=== PATIENT | female | born 1965 | race African-American/Black ===

== ENCOUNTER 2017-01-12 14:04 | Inpatient (IN) | payer SELFPAY ==
[~2017-01-12] VITALS: Ht 172.7 cm; Wt 98.4 kg
[2017-01-12] MEDS ORDERED: IV NORMAL SALINE 1000ML BAG 1,000 ML IV SCH (14:16)
--- NOTE | 2017-01-12 14:31 | RAD ---
Indication: Slurred speech. Previous strokes Technique: Noncontrast CT head was obtained. There is no prior study at this institution. One or more of the following individualized dose reduction techniques were utilized for this examination: 1. Automated exposure control 2. Adjustment of the mA and/or kV according to patient size 3. Use of iterative reconstruction technique Findings: There is an area of subtle decreased attenuation in the posterior right temporal lobe. Small acute infarct is possible. Consider MRI. There is no evidence of hemorrhagic transformation. There is an old left frontoparietal infarct. The ventricles and sulci are within normal limits for age. There is no acute intracranial hemorrhage or extra-axial fluid collection. There is no mass effect or midline shift. The paranasal sinuses and mastoid air cells are clear. Critical report was called to Dr. Alfaro at 1427 hours. Impression: 1. Area of subtle decreased attenuation and loss of luna-white differentiation in the right temporal lobe concerning for acute infarct. 2. 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
[2017-01-12 14:32] LABS: HEMATOCRIT 43.3 % (36.0-47.0); HEMOGLOBIN 14.5 g/dL (12.0-15.5); RED BLOOD COUNT 5.04 x10^6/uL (3.50-5.40); RED CELL DISTRIBUTION WIDTH 14.7 % (11.5-14.5); WHITE BLOOD COUNT 7.2 x10^3/uL (4.0-11.0)
[2017-01-12] MEDS ORDERED: DIAZ5TAB PO (14:32)
[2017-01-12] MEDS ORDERED: WARF2TAB7 PO (14:32)
[2017-01-12] MEDS ORDERED: CLON0.1T PO (14:32)
[2017-01-12] MEDS ORDERED: ATOR10TA PO (14:32)
[2017-01-12] MEDS ORDERED: AMLO10TA2 PO (14:32)
--- NOTE | 2017-01-12 14:40 | EKG ---
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
[2017-01-12 14:44] LABS: INR 1.1 (0.8-1.1); PROTHROMBIN TIME PATIENT 13.6 SEC (11.7-14.0)
[2017-01-12 14:55] LABS: CALCIUM 9.2 mg/dL (8.5-10.1); GFR 58.2; POTASSIUM 3.3 mmol/L (3.5-5.1)
[2017-01-12 14:56] LABS: ISTAT INR 1.1 (0.9-1.1); ISTAT PT 13.2 Sec (10.0-14.0)
[2017-01-12 15:00] LABS: ALBUMIN 3.9 g/dL (3.4-5.0); DIRECT BILIRUBIN 0.1 mg/dL (0.0-0.2); MAGNESIUM 1.8 mg/dL (1.8-2.4); TOTAL BILIRUBIN 0.4 mg/dL (0.2-1.0); TOTAL PROTEIN 8.5 g/dL (6.4-8.2)
[2017-01-12] MEDS ORDERED: ACETAMINOPHEN 650 MG SUPP.RECT. PR PRN (15:00)
[2017-01-12] MEDS ORDERED: ONDANSETRON PF 4 MG/2 ML VIAL. IV PRN (15:00)
[2017-01-12] MEDS ORDERED: MORPHINE SULFATE 4 MG/ML DISP.SYRIN. IV PRN (15:00)
[2017-01-12] MEDS ORDERED: LABETALOL 20 MG/4 ML DISP.SYRIN. IVP PRN (15:00)
[2017-01-12] MEDS ORDERED: ACETAMINOPHEN 325 MG TABLET. PO PRN ×2 (15:00)
--- NOTE | 2017-01-12 15:06 | RAD ---
Indication: Chest pain and pressure. Technique: Upright portable chest radiograph was obtained. No comparison is available. Findings: The lungs are clear. The heart is not enlarged and there is no heart failure. Bony structures are intact. Leads overlie the patient. Impression: No acute thoracic findings.
[2017-01-12 15:09] LABS: CKMB MASS 0.7 ng/mL (0.0-3.6)
--- NOTE | 2017-01-12 15:16 | PHYS DOC ---
Past Medical History Past Medical History: Anxiety, CVA, High Cholesterol, Hypertension Past Surgical History: Hysterectomy, Tubal ligation Additional Information: 4-5 cigarettes daily Alcohol Use: None Drug Use: None Adult General Chief Complaint Chief Complaint: NEURO SYMPTOMS/DEFICITS HPI HPI Patient is a 51 year old F who presents with signs and symptoms of an acute stroke. Patient states she's had a history of strokes. 50 minutes prior to arrival patient developed weakness to her extremity is bilaterally with difficulty talking. Patient's last known well was 1:45 PM. Patient has a history of receiving TPA. Patient denies any vision changes. Patient denies any deficits to the lower extremity. Patient denies any numbness or tingling to the upper extremity. Patient denies any chest pain or shortness of breath. Patient denies any nausea/vomiting/diarrhea. Patient has no other complaints. A code stroke was initiated on this patient. Review of Systems Review of Systems GEN: Denies fevers, chills, sweats HEENT: Denies blurred vision, sore throat CV: Denies chest pain RESP: Denies shortness of air, cough GI: Denies n/v/d NEURO: Left upper extremity weakness and dysarthria MSK: Denies weakness, joint pain/swelling Current Medications Current Medications Current Medications Medications (Trade) Dose Ordered Sig/Deyanira Start Time Stop Time Status Last Admin Dose Admin Acetaminophen (Acetaminophen Supp) 650 mg PRN Q4HRS PRN 01/12/17 15:00 Acetaminophen (Tylenol) 650 mg PRN Q4HRS PRN 01/12/17 15:00 01/13/17 14:59 Enoxaparin Sodium (Lovenox 40mg Syringe) 40 mg Q24H 01/12/17 15:00 UNV Labetalol HCl (Normodyne) 10 mg PRN Q10MIN PRN 01/12/17 15:00 Morphine Sulfate 4 mg PRN Q2HR PRN 01/12/17 15:00 01/13/17 14:59 Ondansetron HCl (Zofran) 4 mg PRN Q8HRS PRN 01/12/17 15:00 01/13/17 14:59 Simvastatin (Zocor) 10 mg QHS 01/12/17 21:00 UNV Sodium Chloride 1,000 ml @ 100 mls/hr Q10H 01/12/17 14:16 01/13/17 00:15 01/12/17 15:00 100 MLS/HR Warfarin Sodium (Coumadin Per Pharmacy) 1 each PRN DAILY PRN 01/12/17 15:00 UNV Allergies Allergies Allergies Coded Allergies Type Severity Reaction Last Updated Verified No Known Drug Allergies 01/12/17 No Physical Exam Physical Exam GEN.: No apparent distress. Alert and oriented. HEENT: Head is normocephalic, atraumatic NECK: Supple. LUNGS: CTAB. HEART: RRR, S1, S2 present. Peripheral pulses intact ABDOMEN: Soft, nontender. Positive bowel sounds. EXTREMITIES: Without any cyanosis. NEUROLOGIC: dysarthria, 3 out of 5 muscle weakness to the upper extremity bilaterally with no paresthesias, 4-5 muscle weakness to lower extremity bilaterally without any paresthesias PSYCHIATRIC: Normal affect, normal mood. SKIN: No ulcerations Current Patient Data Vital Signs Vital Signs Date Time Temp Pulse Resp B/P (MAP) Pulse Ox O2 Delivery O2 Flow Rate FiO2 01/12/17 15:03 81 16 95 01/12/17 14:15 97.8 160/101 (120) Room Air 97.8 Lab Values Laboratory Tests Test 01/12/17 14:12 01/12/17 14:16 White Blood Count 7.2 x10^3/uL (4.0-11.0) Red Blood Count 5.04 x10^6/uL (3.50-5.40) Hemoglobin 14.5 g/dL (12.0-15.5) Hematocrit 43.3 % (36.0-47.0) Mean Corpuscular Volume 86 fL (79-100) Mean Corpuscular Hemoglobin 29 pg (25-35) Mean Corpuscular Hemoglobin Concent 34 g/dL (31-37) Red Cell Distribution Width 14.7 % (11.5-14.5) H Platelet Count 349 x10^3/uL (140-400) Prothrombin Time 13.6 SEC (11.7-14.0) 13.2 Sec (10.0-14.0) Prothrombin Time INR 1.1 (0.8-1.1) PTT 30 SEC (24-38) Sodium Level 142 mmol/L (136-145) Potassium Level 3.3 mmol/L (3.5-5.1) L Chloride Level 105 mmol/L (98-107) Carbon Dioxide Level 30 mmol/L (21-32) Anion Gap 7 (6-14) Blood Urea Nitrogen 15 mg/dL (7-20) Creatinine 1.0 mg/dL (0.6-1.0) Estimated GFR (Cockcroft-Gault) 58.2 Glucose Level 133 mg/dL (70-99) H Glucose (Fingerstick) 132 mg/dL (70-99) H Calcium Level 9.2 mg/dL (8.5-10.1) Magnesium Level 1.8 mg/dL (1.8-2.4) Total Bilirubin 0.4 mg/dL (0.2-1.0) Direct Bilirubin 0.1 mg/dL (0.0-0.2) Aspartate Amino Transferase (AST) 23 U/L (15-37) Alanine Aminotransferase (ALT) 33 U/L (14-59) Alkaline Phosphatase 128 U/L (46-116) H Troponin I Quantitative < 0.017 ng/mL (0.000-0.055) Total Protein 8.5 g/dL (6.4-8.2) H Albumin 3.9 g/dL (3.4-5.0) POC INR 1.1 (0.9-1.1) Laboratory Tests 01/12/17 14:12 Laboratory Tests 01/12/17 14:12 EKG EKG 1435: EKG shows normal sinus rhythm rate of 93 no STEMI[] Radiology/Procedures Radiology/Procedures CT scan of the head shows an area of subtle decreased attenuation in loss of luna-white matter differentiation in the right temporal lobe concerning for an acute infarct[] Course & Med Decision Making Course & Med Decision Making Pertinent Labs and Imaging studies reviewed. (See chart for details) ED course: Patient was seen and examined upon arrival emergency room code stroke was initiated and stroke order set was ordered 1425: Radiologist contacted me with CT findings 1429: Discussed CC/HP/PMH with Dr. Merritt and recommends no TPA secondary to patient's clinical symptoms and CT findings and will be placed on consult and wants an MRI 1500: Discussed CC/HP/PMH with Dr. sorenson and recommends admit [] 1515: Plan was discussed with patient to admit for further evaluation and management. [] Dragon Disclaimer Dragon Disclaimer This electronic medical record was generated, in whole or in part, using a voice recognition dictation system. Departure Departure Impression: Primary Impression: CVA (cerebral vascular accident) Disposition: 09 ADMITTED INPATIENT Admitting Physician: Liz Sorenson Condition: STABLE KATHRYN PORTER DO Jan 12, 2017 15:15
--- NOTE | 2017-01-12 15:32 | PDOC2 ---
NEUROLOGY CONSULT Date of Admission Date of Admission DATE: 01/12/17 TIME: 15:25 Reason for Consult Reason for Consult: Stroke symptoms Referring Physician Referring Physician: Dr. Sorenson Source Source: Caregiver, Chart review, Patient History of Present Illness History of Present Illness The patient is a 51-year-old right-handed female with history of strokes in the past requiring alteplase infusion in [place] where she lives. She was visiting here for her brother's who just of a stroke. She was at the home, than she was doing some cleaning and laundry, and noticed onset of bilateral arm heaviness and numbness as well as dysarthria. Her last stroke cause some aphasia and right-sided weakness but she made a very good recovery. She thinks she just had a panic attack. Symptoms started about 1:45 and I saw the patient at 2:45. By then she was already feeling better. There is no history of seizure or head injury. Past Medical History Cardiovascular: HTN, Hyperlipidemia CENTRAL NERVOUS SYSTEM: CVA Psych: Anxiety Past Surgical History Past Surgical History: Tubal Ligation, Hysterectomy Family History Family History: CVA Social History Social History Smokes a fourth of a pack of cigarettes per day, rare alcohol, lives in [place] Current Medications Current Medications Current Medications Sodium Chloride 1,000 ml @ 100 mls/hr Q10H IV Last administered on 01/12/17t 15:00; Start 01/12/17 at 14:16; Stop 01/13/17 at 00:15 Enoxaparin Sodium (Lovenox 40mg Syringe) 40 mg Q24H SQ ; Start 01/12/17 at 16: 00 Labetalol HCl (Normodyne) 10 mg PRN Q10MIN PRN IVP COMM; Start 01/12/17 at 15: 00 Simvastatin (Zocor) 10 mg QHS PO ; Start 01/12/17 at 21:00 Acetaminophen (Tylenol) 650 mg PRN Q6HRS PRN PO TEMP > 100.4F; Start 01/12/17 at 15:00 Acetaminophen (Acetaminophen Supp) 650 mg PRN Q4HRS PRN [place] TEMP > 100.4F; Start 01/12/17 at 15:00 Warfarin Sodium (Coumadin Per Pharmacy) 1 each PRN DAILY PRN MC SEE COMMENTS; Start 10/16/17 at 15:00 Ondansetron HCl (Zofran) 4 mg PRN Q8HRS PRN IV NAUSEA/VOMITING; Start at 15:00; Stop 01/13/17 at 14:59 Morphine Sulfate 4 mg PRN Q2HR PRN IV PAIN; Start 01/12/17 at 15:00; Stop at 14:59 Acetaminophen (Tylenol) 650 mg PRN Q4HRS PRN PO FEVER; Start 01/12/17 at 15:00 ; Stop 01/13/17 at 14:59 Active Scripts Active Reported Amlodipine Besylate 10 Mg Tablet Unknown Dose PO DAILY Clonidine Hcl 0.1 Mg Tablet Unknown Dose PO DAILY Warfarin Sodium 2 Mg Tablet Unknown Dose PO DAILY Lipitor (Atorvastatin Calcium) 10 Mg Tablet Unknown Dose PO HS Valium (Diazepam) 5 Mg Tablet 5 Mg PO BID Allergies Allergies: Coded Allergies: No Known Drug Allergies (Unverified , 01/12/17) ROS Review of System Patient denies fevers, chills, weight loss, dyspnea, angina, abdominal pain, change in bowels, or dysuria. 14 point review of systems is negative. Physical Exam Physical Examination PHYSICAL EXAMINATION: Vital signs: see above. General appearance is normal and in no acute distress. HEENT: Normocephalic and nontraumatic. Eyes, nose, ears, and throat are unremarkable. Neck is supple. No lymphadenopathy. No bruits are heard over the carotid artery. No crepitus. NEUROLOGICAL EXAMINATION: Mental Status Examination: Alert. Oriented to time, place, and person. Answers questions and follows commends. Just a little hesitant with speech. Pupils are equal round and reactive to light and accommodation. Funduscopic exam: No papilledema. Extraocular movements are intact. Visual field exam shows no defect on the direct confrontation. No motor or sensory deficits on the facial exam. Uvula in the midline and the soft palate elevated symmetrically. No deviation of the tongue to any direction. Gross hearing is normal. Shoulder shrug normal. Muscle tone is normal. Muscle strength is 5. Deep tendon reflexes are 2+ all around. Plantar reflex is with flexion response bilaterally. [id number]-[id number] test performance is accurate. Tandem walk test is accurate. Alternative movements are accurate. Romberg test is negative. Gait is normal. Sensory exam shows no deficits. No cerebellar signs are elicited. Vitals VITALS Vital Signs Date Time Temp Pulse Resp B/P (MAP) Pulse Ox O2 Delivery O2 Flow Rate FiO2 01/12/17 15:03 81 16 95 01/12/17 14:15 97.8 160/101 (120) Room Air 97.8 Labs Labs Laboratory Tests Test 01/12/17 14:12 01/12/17 14:16 White Blood Count 7.2 x10^3/uL (4.0-11.0) Red Blood Count 5.04 x10^6/uL (3.50-5.40) Hemoglobin 14.5 g/dL (12.0-15.5) Hematocrit 43.3 % (36.0-47.0) Mean Corpuscular Volume 86 fL (79-100) Mean Corpuscular Hemoglobin 29 pg (25-35) Mean Corpuscular Hemoglobin Concent 34 g/dL (31-37) Red Cell Distribution Width 14.7 % (11.5-14.5) Platelet Count 349 x10^3/uL (140-400) Prothrombin Time 13.6 SEC (11.7-14.0) 13.2 Sec (10.0-14.0) Prothromb Time International Ratio 1.1 (0.8-1.1) Activated Partial Thromboplast Time 30 SEC (24-38) Sodium Level 142 mmol/L (136-145) Potassium Level 3.3 mmol/L (3.5-5.1) Chloride Level 105 mmol/L (98-107) Carbon Dioxide Level 30 mmol/L (21-32) Anion Gap 7 (6-14) Blood Urea Nitrogen 15 mg/dL (7-20) Creatinine 1.0 mg/dL (0.6-1.0) Estimated GFR (Cockcroft-Gault) 58.2 Glucose Level 133 mg/dL (70-99) Glucose (Fingerstick) 132 mg/dL (70-99) Calcium Level 9.2 mg/dL (8.5-10.1) Magnesium Level 1.8 mg/dL (1.8-2.4) Total Bilirubin 0.4 mg/dL (0.2-1.0) Direct Bilirubin 0.1 mg/dL (0.0-0.2) Aspartate Amino Transf (AST/SGOT) 23 U/L (15-37) Alanine Aminotransferase (ALT/SGPT) 33 U/L (14-59) Alkaline Phosphatase 128 U/L (46-116) Creatine Kinase 154 U/L (26-192) Creatine Kinase MB (Mass) 0.7 ng/mL (0.0-3.6) Creatine Kinase MB Relative Index 0.5 % (0-4) Troponin I Quantitative < 0.017 ng/mL (0.000-0.055) PH-Jcz-V-Type Natriuretic Peptide 33 pg/mL (0-124) Total Protein 8.5 g/dL (6.4-8.2) Albumin 3.9 g/dL (3.4-5.0) Bedside INR (LAB) 1.1 (0.9-1.1) Laboratory Tests Test 01/12/17 14:12 01/12/17 14:16 White Blood Count 7.2 x10^3/uL (4.0-11.0) Red Blood Count 5.04 x10^6/uL (3.50-5.40) Hemoglobin 14.5 g/dL (12.0-15.5) Hematocrit 43.3 % (36.0-47.0) Mean Corpuscular Volume 86 fL (79-100) Mean Corpuscular Hemoglobin 29 pg (25-35) Mean Corpuscular Hemoglobin Concent 34 g/dL (31-37) Red Cell Distribution Width 14.7 % (11.5-14.5) Platelet Count 349 x10^3/uL (140-400) Prothrombin Time 13.6 SEC (11.7-14.0) 13.2 Sec (10.0-14.0) Prothromb Time International Ratio 1.1 (0.8-1.1) Activated Partial Thromboplast Time 30 SEC (24-38) Sodium Level 142 mmol/L (136-145) Potassium Level 3.3 mmol/L (3.5-5.1) Chloride Level 105 mmol/L (98-107) Carbon Dioxide Level 30 mmol/L (21-32) Anion Gap 7 (6-14) Blood Urea Nitrogen 15 mg/dL (7-20) Creatinine 1.0 mg/dL (0.6-1.0) Estimated GFR (Cockcroft-Gault) 58.2 Glucose Level 133 mg/dL (70-99) Glucose (Fingerstick) 132 mg/dL (70-99) Calcium Level 9.2 mg/dL (8.5-10.1) Magnesium Level 1.8 mg/dL (1.8-2.4) Total Bilirubin 0.4 mg/dL (0.2-1.0) Direct Bilirubin 0.1 mg/dL (0.0-0.2) Aspartate Amino Transf (AST/SGOT) 23 U/L (15-37) Alanine Aminotransferase (ALT/SGPT) 33 U/L (14-59) Alkaline Phosphatase 128 U/L (46-116) Creatine Kinase 154 U/L (26-192) Creatine Kinase MB (Mass) 0.7 ng/mL (0.0-3.6) Creatine Kinase MB Relative Index 0.5 % (0-4) Troponin I Quantitative < 0.017 ng/mL (0.000-0.055) FY-Srg-O-Type Natriuretic Peptide 33 pg/mL (0-124) Total Protein 8.5 g/dL (6.4-8.2) Albumin 3.9 g/dL (3.4-5.0) Bedside INR (LAB) 1.1 (0.9-1.1) Images Images CT head: Findings: There is an area of subtle decreased attenuation in the posterior right temporal lobe. Small acute infarct is possible. Consider MRI. There is no evidence of hemorrhagic transformation. There is an old left frontoparietal infarct. The ventricles and sulci are within normal limits for age. There is no acute intracranial hemorrhage or extra-axial fluid collection. There is no mass effect or midline shift. The paranasal sinuses and mastoid air cells are clear. Critical report was called to Dr. Alfaro at 1427 hours. Impression: 1. Area of subtle decreased attenuation and loss of luna-white differentiation in the right temporal lobe concerning for acute infarct. 2. 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 Assessment/Plan Assessment/Plan Impression: Stroke symptoms, but she has bilateral problems and dysarthria which are difficult to localize. On the other hand, relative hypertension and anxiety could have produced the symptoms. The patient is much better now and has a virtually normal examination. She is on warfarin with a subtherapeutic international normalized ratio. Prior strokes in the past including definite left frontal stroke, for which she received alteplase Radiology is concerned about right temporal lobe problem, which I do not fully appreciate. Recommendations: I discussed the risks, benefits, alternatives, and side effects with the patient and her family. Although the CT head is abnormal, her bedside examination is nonfocal, her symptoms are rapidly improving, so I believe that the risks outweigh the benefits of alteplase infusion. Inpatient observation MRI brain Echocardiogram [facility] to dose warfarin Rehabilitation evaluations. Continue statin Check lipids. Thank you for letting me help with the patient's care. HEMANT VARGAS MD Jan 12, 2017 15:32
[2017-01-12] MEDS ORDERED: ENOXAPARIN 40 MG/0.4 ML SYRINGE. SQ SCH (16:00)
--- NOTE | 2017-01-12 16:17 | PDOC1 ---
History and Physical Date of Admission Date of Admission DATE: 01/12/17 TIME: 16:13 Identification/Chief Complaint Chief Complaint arm weakness Problems: Source Source: Chart review, Patient History of Present Illness History of Present Illness Ms. Remy is a 51 year old F admit for new arm weakness bilat, and prior history of acute stroke. she reports a stressful day, recent in the family, and was agitated, she had more anxiety, and her OCD was flared up today after meeting extended family at the home. Then suddenly, she developed weakness to her extremity is bilaterally with difficulty talking. Prior history of receiving TPA. Patient denies any vision changes. arm weakenss only and is improving in the ER, no intervnetion given Past Medical History Cardiovascular: HTN, Hyperlipidemia CENTRAL NERVOUS SYSTEM: CVA Psych: Anxiety Past Surgical History Past Surgical History: Tubal Ligation, Hysterectomy Social History Smoke: <1 pack per day ALCOHOL: none Drugs: None Current Medications Current Medications Current Medications Sodium Chloride 1,000 ml @ 100 mls/hr Q10H IV Last administered on 01/12/17t 15:00; Start 01/12/17 at 14:16; Stop 01/13/17 at 00:15 Enoxaparin Sodium (Lovenox 40mg Syringe) 40 mg Q24H SQ ; Start 01/12/17 at 16: 00 Labetalol HCl (Normodyne) 10 mg PRN Q10MIN PRN IVP COMM; Start 01/12/17 at 15: 00 Simvastatin (Zocor) 10 mg QHS PO ; Start 01/12/17 at 21:00 Acetaminophen (Tylenol) 650 mg PRN Q6HRS PRN PO TEMP > 100.4F; Start 01/12/17 at 15:00 Acetaminophen (Acetaminophen Supp) 650 mg PRN Q4HRS PRN IA TEMP > 100.4F; Start 01/12/17 at 15:00 Warfarin Sodium (Coumadin Per Pharmacy) 1 each PRN DAILY PRN MC SEE COMMENTS; Start 01/12/17 at 15:00 Ondansetron HCl (Zofran) 4 mg PRN Q8HRS PRN IV NAUSEA/VOMITING; Start at 15:00; Stop 01/13/17 at 14:59 Morphine Sulfate 4 mg PRN Q2HR PRN IV PAIN; Start 01/12/17 at 15:00; Stop at 14:59 Acetaminophen (Tylenol) 650 mg PRN Q4HRS PRN PO FEVER; Start 01/12/17 at 15:00 ; Stop 01/13/17 at 14:59 Active Scripts Active Reported Amlodipine Besylate 10 Mg Tablet Unknown Dose PO DAILY Clonidine Hcl 0.1 Mg Tablet Unknown Dose PO DAILY Warfarin Sodium 2 Mg Tablet Unknown Dose PO DAILY Lipitor (Atorvastatin Calcium) 10 Mg Tablet Unknown Dose PO HS Valium (Diazepam) 5 Mg Tablet 5 Mg PO BID Allergies Allergies: Coded Allergies: No Known Drug Allergies (Unverified , 01/12/17) ROS General: No: Chills, Night Sweats, Fatigue, Malaise, Appetite, Other PSYCHOLOGICAL ROS: YES: Anxiety, Irritablity, Sleep disturbances, No: Behavioral Disorder, Concentration difficultie, Decreased libido, Depression, Disorientation, Hallucinations, Hostility, Memory difficulties, Mood Swings, Obsessive thoughts, Other Eyes: No Blurry vision, No Decreased vision, No Double vision, No Dry eyes, No Excessive tearing, No Eye Pain, No Itchy Eyes, No Loss of vision, No Photophobia , No Scotomata, No Uses contacts, No Uses glasses, No Other HEENT: YES: Heacaches, No: Visual Changes, Hearing change, Nasal congestion, Nasal discharge, Oral lesions, Sinus pain, Sore Throat, Epistaxis, Sneezing, Snoring, Tinnitus, Vertigo, Vocal changes, Other Respiratory: No: Cough, Hemoptysis, Orthopnea, Pleuritic Pain, Shortness of breath, SOB with excertion, Sputum Changes, Stridor, Tachypnea, Wheezing, Other Cardiovascular: No Chest Pain, No Palpitations, No Orthopnea, No Paroxysmal Noc. Dyspnea, No Edema, No Lt Headedness, No Other Gastrointestinal: Yes Nausea, No Vomiting, No Abdominal Pain, No Diarrhea, No Constipation, No Melena, No Hematochezia, No Other Genitourinary: No Dysuria, No Frequency, No Incontinence, No Hematuria, No Retention, No Discharge, No Urgency, No Pain, No Flank Pain, No Other, No , No , No , No , No , No , No Musculoskeletal: Yes Muscular Weakness, Yes Pain In:, No Gait Disturbance, No Joint Pain, No Joint Stiffness, No Joint Swelling, No Muscle Pain, No Swelling In:, No Other Neurological: Yes Weakness, No Behavorial Changes, No Bowel/Bladder ControlChng, No Confusion, No Dizziness, No Gait Disturbance, No Headaches, No Impaired Coord/balance, No Memory Loss, No Numbness/Tingling, No Seizures, No Speech Problems, No Tremors, No Visual Changes, No Other Skin: Yes Dry Skin, No Eczema, No Hair Changes, No Lumps, No Mole Changes, No Mottling, No Nail Changes, No Pruritus, No Rash, No Skin Lesion Changes, No Other, No Acne Physical Exam General: Alert, Oriented X3, Cooperative, No acute distress HEENT: Atraumatic, PERRLA, EOMI Lungs: Clear to auscultation Heart: no gallops, no murmurs Abdomen: Normal bowel sounds, Soft Rectal Exam: not examined Extremities: No cyanosis, Normal pulses Neuro: Normal speech, Sensation intact Psych/Mental Status: Mental status NL, Mood NL Vitals Vitals Vital Signs Date Time Temp Pulse Resp B/P (MAP) Pulse Ox O2 Delivery O2 Flow Rate FiO2 01/12/17 15:31 74 20 100 01/12/17 14:15 97.8 160/101 (120) Room Air 97.8 Labs Labs Laboratory Tests Test 01/12/17 14:12 01/12/17 14:16 White Blood Count 7.2 x10^3/uL (4.0-11.0) Red Blood Count 5.04 x10^6/uL (3.50-5.40) Hemoglobin 14.5 g/dL (12.0-15.5) Hematocrit 43.3 % (36.0-47.0) Mean Corpuscular Volume 86 fL (79-100) Mean Corpuscular Hemoglobin 29 pg (25-35) Mean Corpuscular Hemoglobin Concent 34 g/dL (31-37) Red Cell Distribution Width 14.7 % (11.5-14.5) Platelet Count 349 x10^3/uL (140-400) Prothrombin Time 13.6 SEC (11.7-14.0) 13.2 Sec (10.0-14.0) Prothromb Time International Ratio 1.1 (0.8-1.1) Activated Partial Thromboplast Time 30 SEC (24-38) Sodium Level 142 mmol/L (136-145) Potassium Level 3.3 mmol/L (3.5-5.1) Chloride Level 105 mmol/L (98-107) Carbon Dioxide Level 30 mmol/L (21-32) Anion Gap 7 (6-14) Blood Urea Nitrogen 15 mg/dL (7-20) Creatinine 1.0 mg/dL (0.6-1.0) Estimated GFR (Cockcroft-Gault) 58.2 Glucose Level 133 mg/dL (70-99) Glucose (Fingerstick) 132 mg/dL (70-99) Calcium Level 9.2 mg/dL (8.5-10.1) Magnesium Level 1.8 mg/dL (1.8-2.4) Total Bilirubin 0.4 mg/dL (0.2-1.0) Direct Bilirubin 0.1 mg/dL (0.0-0.2) Aspartate Amino Transf (AST/SGOT) 23 U/L (15-37) Alanine Aminotransferase (ALT/SGPT) 33 U/L (14-59) Alkaline Phosphatase 128 U/L (46-116) Creatine Kinase 154 U/L (26-192) Creatine Kinase MB (Mass) 0.7 ng/mL (0.0-3.6) Creatine Kinase MB Relative Index 0.5 % (0-4) Troponin I Quantitative < 0.017 ng/mL (0.000-0.055) LX-Rxo-K-Type Natriuretic Peptide 33 pg/mL (0-124) Total Protein 8.5 g/dL (6.4-8.2) Albumin 3.9 g/dL (3.4-5.0) Bedside INR (LAB) 1.1 (0.9-1.1) Laboratory Tests Test 01/12/17 14:12 01/12/17 14:16 White Blood Count 7.2 x10^3/uL (4.0-11.0) Red Blood Count 5.04 x10^6/uL (3.50-5.40) Hemoglobin 14.5 g/dL (12.0-15.5) Hematocrit 43.3 % (36.0-47.0) Mean Corpuscular Volume 86 fL (79-100) Mean Corpuscular Hemoglobin 29 pg (25-35) Mean Corpuscular Hemoglobin Concent 34 g/dL (31-37) Red Cell Distribution Width 14.7 % (11.5-14.5) Platelet Count 349 x10^3/uL (140-400) Prothrombin Time 13.6 SEC (11.7-14.0) 13.2 Sec (10.0-14.0) Prothromb Time International Ratio 1.1 (0.8-1.1) Activated Partial Thromboplast Time 30 SEC (24-38) Sodium Level 142 mmol/L (136-145) Potassium Level 3.3 mmol/L (3.5-5.1) Chloride Level 105 mmol/L (98-107) Carbon Dioxide Level 30 mmol/L (21-32) Anion Gap 7 (6-14) Blood Urea Nitrogen 15 mg/dL (7-20) Creatinine 1.0 mg/dL (0.6-1.0) Estimated GFR (Cockcroft-Gault) 58.2 Glucose Level 133 mg/dL (70-99) Glucose (Fingerstick) 132 mg/dL (70-99) Calcium Level 9.2 mg/dL (8.5-10.1) Magnesium Level 1.8 mg/dL (1.8-2.4) Total Bilirubin 0.4 mg/dL (0.2-1.0) Direct Bilirubin 0.1 mg/dL (0.0-0.2) Aspartate Amino Transf (AST/SGOT) 23 U/L (15-37) Alanine Aminotransferase (ALT/SGPT) 33 U/L (14-59) Alkaline Phosphatase 128 U/L (46-116) Creatine Kinase 154 U/L (26-192) Creatine Kinase MB (Mass) 0.7 ng/mL (0.0-3.6) Creatine Kinase MB Relative Index 0.5 % (0-4) Troponin I Quantitative < 0.017 ng/mL (0.000-0.055) JU-Rqj-X-Type Natriuretic Peptide 33 pg/mL (0-124) Total Protein 8.5 g/dL (6.4-8.2) Albumin 3.9 g/dL (3.4-5.0) Bedside INR (LAB) 1.1 (0.9-1.1) VTE Prophylaxis Ordered VTE Prophylaxis Devices: No VTE Pharmacological Prophylaxi: Yes Assessment/Plan Assessment/Plan TIA hx CVA, x4 ongoing tobaccoism anxiety d/o and OCD htn obesity, BMI 32 hypokalemia ALBINO LACKEY MD Jan 12, 2017 16:17
[2017-01-12] MEDS ORDERED: POTASSIUM CHLORIDE 20 MEQ TABLET.ER. PO ONE (16:30)
--- NOTE | 2017-01-12 17:13 | RAD ---
Indication TIA. Grayscale color Doppler and spectral imaging was performed. Examination was targeted to the carotid bifurcations. On the right there is only some mild plaquing and intimal thickening at the bifurcation. The color Doppler images do not suggest significant turbulence. The common carotid waveform and velocities are normal. The external carotid has a normal appearance. The internal carotid waveform and velocities are within normal limits. Note is made that the internal carotid is somewhat tortuous. The vertebral is patent and demonstrates normal directional flow. The subclavian artery appears unremarkable. On the left there is only minimal plaquing at the bifurcation. The color Doppler images do not suggest significant turbulence. The common carotid waveform and velocities are normal. The external carotid has a normal appearance. The internal carotid waveform and velocities are normal. Vertebral is patent and demonstrates normal directional flow. The subclavian artery appears unremarkable. IMPRESSION: No evidence of hemodynamically significant stenosis at either carotid bifurcation. Stenosis 0-50%. Note: Stenosis calculations for CT, MR and conventional angiography are based upon determination of the distal ICA diameter in accordance with the NASCET methodology. Stenosis calculations for doppler studies are derived from validated velocity criteria which are known to correlate with NASCET methodology of determining stenosis.
--- NOTE | 2017-01-12 17:13 | RAD ---
MRI Brain without IV contrast. History: Speech difficulty for one day, TIA. Comparison: None. Technique: Routine multiplanar multisequence MRI of the brain was performed without intravenous administration. Findings: Ventricles appear appropriate for patient age. Small old cortical infarction involves the left parietal lobe. There is no shift in midline structures; there is no evidence of intracranial mass or significant mass effect. There is no evidence of acute intracranial hemorrhage. No abnormal extra-axial fluid collections are identified. There is no restricted diffusion to suggest acute infarction. Major intracranial vascular flow voids appear intact. Left maxillary sinus disease is seen. Impression: 1. No acute intracranial process. 2. 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 Electronically signed by: Chu Angel MD (01/12/2017 5:09 PM) [facility]
[2017-01-12 17:21] VITALS: BP 139/92
[2017-01-12] MEDS ORDERED: WARFARIN 7.5 MG TABLET. PO ONE (17:30)
[2017-01-12] MEDS ORDERED: ATOR40TA PO (18:10)
[2017-01-12] MEDS: ASPIRIN 325 MG TABLET PO SCH (19:41)
[2017-01-12 19:43] VITALS: BP 123/83
[2017-01-12] MEDS ORDERED: SIMVASTATIN 10 MG TABLET PO SCH (21:00)
[2017-01-12] MEDS ORDERED: ATORVASTATIN CALCIUM 10 MG TABLET. PO SCH (21:00)
[2017-01-12] MEDS: diazePAM 5 MG TABLET PO SCH (22:17)
[2017-01-12 23:00] VITALS: BP 133/90
[2017-01-13 03:00] VITALS: BP 125/87
[2017-01-13 05:10] LABS: BASO % 1 % (0-3); EOS % 3 % (0-3); HEMATOCRIT 39.5 % (36.0-47.0); HEMOGLOBIN 13.1 g/dL (12.0-15.5); LYMPH # 2.6 x10^3/uL (1.0-4.8); LYMPH % 41 % (24-48); MEAN CORPUSCULAR HEMOGLOBIN 29 pg (25-35); MEAN CORPUSCULAR HGB CONC 33 g/dL (31-37); MEAN CORPUSCULAR VOLUME 86 fL (79-100); MONO % 9 % (0-9); NEUT % 46 % (31-73); PLATELET COUNT 297 x10^3/uL (140-400); RED BLOOD COUNT 4.58 x10^6/uL (3.50-5.40); WHITE BLOOD COUNT 6.4 x10^3/uL (4.0-11.0)
[2017-01-13 05:26] LABS: CALCIUM 8.8 mg/dL (8.5-10.1); CREATININE 0.8 mg/dL (0.6-1.0); GFR 91.1; POTASSIUM 3.6 mmol/L (3.5-5.1)
[2017-01-13 05:47] LABS: CHOLESTEROL/HDL RATIO 3.9
[2017-01-13 07:00] VITALS: BP 119/90
[2017-01-13] MEDS ORDERED: WARFARIN 2 MG TABLET. PO SCH (09:00)
[2017-01-13] MEDS ORDERED: amLODIPine BESYLATE 10 MG TABLET PO SCH (09:00)
[2017-01-13] MEDS ORDERED: cloNIDine HCL 0.1 MG TABLET PO SCH (09:00)
[2017-01-13] MEDS: diazePAM 5 MG TABLET PO SCH (09:20)
[2017-01-13] MEDS: ASPIRIN 325 MG TABLET PO SCH (09:20)
[2017-01-13 11:00] VITALS: BP 113/80
--- NOTE | 2017-01-13 11:13 | PDOC ---
PROGRESS NOTES Assessment Stroke symptoms, Negative workup. She did have some increased dysarthria later in the afternoon that resolved. I still suspect this was related to anxiety and maybe hypertension. She is on warfarin with a subtherapeutic international normalized ratio. Prior strokes in the past including definite left frontal stroke, for which she received alteplase Plan Okay for discharge, no need to wait for echocardiogram report as we are starting her warfarin anyway. Warfarin dose per primary physician, patient to follow up as soon as possible upon return home. Aspirin for now, primary physician can discontinue it when INR therapeutic Continue statin Subjective No complaints, wants to go home Objective Vital Signs Date Time Temp Pulse Resp B/P (MAP) Pulse Ox O2 Delivery O2 Flow Rate FiO2 01/13/17 09:22 78 119/90 01/13/17 07:00 97.4 18 98 Room Air 97.4 PHYSICAL EXAM Alert. Oriented to time, place and person. PERRL. EOMI. CN: no focal findings. Muscle tone: normal. Muscle strength: 5/5 DTR: 2+ Plantar reflex: flexor Gait: normal. Sensory exam: no abnormal findings. No cerebellar signs elicited. Review of Relevant I have reviewed the following items [place] (where applicable) has been applied. Labs Laboratory Tests Test 01/12/17 14:12 01/12/17 14:16 01/13/17 04:10 White Blood Count 7.2 x10^3/uL (4.0-11.0) 6.4 x10^3/uL (4.0-11.0) Red Blood Count 5.04 x10^6/uL (3.50-5.40) 4.58 x10^6/uL (3.50-5.40) Hemoglobin 14.5 g/dL (12.0-15.5) 13.1 g/dL (12.0-15.5) Hematocrit 43.3 % (36.0-47.0) 39.5 % (36.0-47.0) Mean Corpuscular Volume 86 fL (79-100) 86 fL (79-100) Mean Corpuscular Hemoglobin 29 pg (25-35) 29 pg (25-35) Mean Corpuscular Hemoglobin Concent 34 g/dL (31-37) 33 g/dL (31-37) Red Cell Distribution Width 14.7 % (11.5-14.5) 15.0 % (11.5-14.5) Platelet Count 349 x10^3/uL (140-400) 297 x10^3/uL (140-400) Prothrombin Time 13.6 SEC (11.7-14.0) 13.2 Sec (10.0-14.0) Prothromb Time International Ratio 1.1 (0.8-1.1) Activated Partial Thromboplast Time 30 SEC (24-38) Sodium Level 142 mmol/L (136-145) 144 mmol/L (136-145) Potassium Level 3.3 mmol/L (3.5-5.1) 3.6 mmol/L (3.5-5.1) Chloride Level 105 mmol/L (98-107) 108 mmol/L (98-107) Carbon Dioxide Level 30 mmol/L (21-32) 29 mmol/L (21-32) Anion Gap 7 (6-14) 7 (6-14) Blood Urea Nitrogen 15 mg/dL (7-20) 20 mg/dL (7-20) Creatinine 1.0 mg/dL (0.6-1.0) 0.8 mg/dL (0.6-1.0) Estimated GFR (Cockcroft-Gault) 58.2 91.1 Glucose Level 133 mg/dL (70-99) 98 mg/dL (70-99) Glucose (Fingerstick) 132 mg/dL (70-99) Calcium Level 9.2 mg/dL (8.5-10.1) 8.8 mg/dL (8.5-10.1) Magnesium Level 1.8 mg/dL (1.8-2.4) Total Bilirubin 0.4 mg/dL (0.2-1.0) Direct Bilirubin 0.1 mg/dL (0.0-0.2) Aspartate Amino Transf (AST/SGOT) 23 U/L (15-37) Alanine Aminotransferase (ALT/SGPT) 33 U/L (14-59) Alkaline Phosphatase 128 U/L (46-116) Creatine Kinase 154 U/L (26-192) Creatine Kinase MB (Mass) 0.7 ng/mL (0.0-3.6) Creatine Kinase MB Relative Index 0.5 % (0-4) Troponin I Quantitative < 0.017 ng/mL (0.000-0.055) AI-Ppq-P-Type Natriuretic Peptide 33 pg/mL (0-124) Total Protein 8.5 g/dL (6.4-8.2) Albumin 3.9 g/dL (3.4-5.0) Bedside INR (LAB) 1.1 (0.9-1.1) Neutrophils (%) (Auto) 46 % (31-73) Lymphocytes (%) (Auto) 41 % (24-48) Monocytes (%) (Auto) 9 % (0-9) Eosinophils (%) (Auto) 3 % (0-3) Basophils (%) (Auto) 1 % (0-3) Neutrophils # (Auto) 2.9 x10^3uL (1.8-7.7) Lymphocytes # (Auto) 2.6 x10^3/uL (1.0-4.8) Monocytes # (Auto) 0.6 x10^3/uL (0.0-1.1) Eosinophils # (Auto) 0.2 x10^3/uL (0.0-0.7) Basophils # (Auto) 0.0 x10^3/uL (0.0-0.2) Triglycerides Level 214 mg/dL (0-150) Cholesterol Level 133 mg/dL (0-200) LDL Cholesterol, Calculated 56 mg/dL (0-100) VLDL Cholesterol, Calculated 43 mg/dL (0-40) Non-HDL Cholesterol Calculated 99 mg/dL (0-129) HDL Cholesterol 34 mg/dL (40-60) Cholesterol/HDL Ratio 3.9 Laboratory Tests Test 01/12/17 14:12 01/12/17 14:16 01/13/17 04:10 White Blood Count 7.2 x10^3/uL (4.0-11.0) 6.4 x10^3/uL (4.0-11.0) Red Blood Count 5.04 x10^6/uL (3.50-5.40) 4.58 x10^6/uL (3.50-5.40) Hemoglobin 14.5 g/dL (12.0-15.5) 13.1 g/dL (12.0-15.5) Hematocrit 43.3 % (36.0-47.0) 39.5 % (36.0-47.0) Mean Corpuscular Volume 86 fL (79-100) 86 fL (79-100) Mean Corpuscular Hemoglobin 29 pg (25-35) 29 pg (25-35) Mean Corpuscular Hemoglobin Concent 34 g/dL (31-37) 33 g/dL (31-37) Red Cell Distribution Width 14.7 % (11.5-14.5) 15.0 % (11.5-14.5) Platelet Count 349 x10^3/uL (140-400) 297 x10^3/uL (140-400) Prothrombin Time 13.6 SEC (11.7-14.0) 13.2 Sec (10.0-14.0) Prothromb Time International Ratio 1.1 (0.8-1.1) Activated Partial Thromboplast Time 30 SEC (24-38) Sodium Level 142 mmol/L (136-145) 144 mmol/L (136-145) Potassium Level 3.3 mmol/L (3.5-5.1) 3.6 mmol/L (3.5-5.1) Chloride Level 105 mmol/L (98-107) 108 mmol/L (98-107) Carbon Dioxide Level 30 mmol/L (21-32) 29 mmol/L (21-32) Anion Gap 7 (6-14) 7 (6-14) Blood Urea Nitrogen 15 mg/dL (7-20) 20 mg/dL (7-20) Creatinine 1.0 mg/dL (0.6-1.0) 0.8 mg/dL (0.6-1.0) Estimated GFR (Cockcroft-Gault) 58.2 91.1 Glucose Level 133 mg/dL (70-99) 98 mg/dL (70-99) Glucose (Fingerstick) 132 mg/dL (70-99) Calcium Level 9.2 mg/dL (8.5-10.1) 8.8 mg/dL (8.5-10.1) Magnesium Level 1.8 mg/dL (1.8-2.4) Total Bilirubin 0.4 mg/dL (0.2-1.0) Direct Bilirubin 0.1 mg/dL (0.0-0.2) Aspartate Amino Transf (AST/SGOT) 23 U/L (15-37) Alanine Aminotransferase (ALT/SGPT) 33 U/L (14-59) Alkaline Phosphatase 128 U/L (46-116) Creatine Kinase 154 U/L (26-192) Creatine Kinase MB (Mass) 0.7 ng/mL (0.0-3.6) Creatine Kinase MB Relative Index 0.5 % (0-4) Troponin I Quantitative < 0.017 ng/mL (0.000-0.055) CL-Aoa-W-Type Natriuretic Peptide 33 pg/mL (0-124) Total Protein 8.5 g/dL (6.4-8.2) Albumin 3.9 g/dL (3.4-5.0) Bedside INR (LAB) 1.1 (0.9-1.1) Neutrophils (%) (Auto) 46 % (31-73) Lymphocytes (%) (Auto) 41 % (24-48) Monocytes (%) (Auto) 9 % (0-9) Eosinophils (%) (Auto) 3 % (0-3) Basophils (%) (Auto) 1 % (0-3) Neutrophils # (Auto) 2.9 x10^3uL (1.8-7.7) Lymphocytes # (Auto) 2.6 x10^3/uL (1.0-4.8) Monocytes # (Auto) 0.6 x10^3/uL (0.0-1.1) Eosinophils # (Auto) 0.2 x10^3/uL (0.0-0.7) Basophils # (Auto) 0.0 x10^3/uL (0.0-0.2) Triglycerides Level 214 mg/dL (0-150) Cholesterol Level 133 mg/dL (0-200) LDL Cholesterol, Calculated 56 mg/dL (0-100) VLDL Cholesterol, Calculated 43 mg/dL (0-40) Non-HDL Cholesterol Calculated 99 mg/dL (0-129) HDL Cholesterol 34 mg/dL (40-60) Cholesterol/HDL Ratio 3.9 Medications Current Medications Sodium Chloride 1,000 ml @ 100 mls/hr Q10H IV Last administered on 01/12/17t 15:00; Start 01/12/17 at 14:16; Stop 01/13/17 at 00:15; Status DC Enoxaparin Sodium (Lovenox 40mg Syringe) 40 mg Q24H SQ Last administered on 19:41; Start 01/12/17 at 16:00 Labetalol HCl (Normodyne) 10 mg PRN Q10MIN PRN IVP COMM; Start 01/12/17 at 15: 00 Simvastatin (Zocor) 10 mg QHS PO ; Start 01/12/17 at 21:00; Status Cancel Acetaminophen (Tylenol) 650 mg PRN Q6HRS PRN PO TEMP > 100.4F; Start 01/12/17 at 15:00 Acetaminophen (Acetaminophen Supp) 650 mg PRN Q4HRS PRN MD TEMP > 100.4F; Start 01/12/17 at 15:00 Warfarin Sodium (Coumadin Per Pharmacy) 1 each PRN DAILY PRN MC SEE COMMENTS Last administered on 01/12/17 17:08; Start 01/12/17 at 15:00 Ondansetron HCl (Zofran) 4 mg PRN Q8HRS PRN IV NAUSEA/VOMITING; Start at 15:00; Stop 01/13/17 at 14:59 Morphine Sulfate 4 mg PRN Q2HR PRN IV PAIN; Start 01/12/17 at 15:00; Stop at 14:59 Acetaminophen (Tylenol) 650 mg PRN Q4HRS PRN PO FEVER; Start 01/12/17 at 15:00 ; Stop 01/13/17 at 14:59 Amlodipine Besylate (Norvasc) 10 mg DAILY PO Last administered on 01/13/17 09 :22; Start 01/13/17 at 09:00 Atorvastatin Calcium (Lipitor) 10 mg HS PO Last administered on 01/12/17 22: 17; Start 01/12/17 at 21:00 Clonidine HCl (Catapres) 0.1 mg DAILY PO Last administered on 01/13/17 09:21 ; Start 01/13/17 at 09:00 Diazepam (Valium) 5 mg BID PO Last administered on 01/13/17 09:20; Start at 21:00 Warfarin Sodium (Coumadin) 2 mg DAILY PO ; Start 01/13/17 at 09:00; Status UNV Potassium Chloride (Klor-Con) 20 meq 1X ONCE PO Last administered on 19:40; Start 01/12/17 at 16:30; Stop 01/12/17 at 16:31; Status DC Aspirin (Tray Aspirin) 325 mg DAILYWBKFT PO Last administered on 01/13/17 09 :20; Start 01/12/17 at 17:00 Warfarin Sodium (Coumadin) 7.5 mg 1X ONCE PO Last administered on 01/12/17 19:40; Start 01/12/17 at 17:30; Stop 01/12/17 at 17:31; Status DC Active Scripts Active Reported Lipitor (Atorvastatin Calcium) 40 Mg Tablet 1 Tab PO DAILY Amlodipine Besylate 10 Mg Tablet Unknown Dose PO DAILY Clonidine Hcl 0.1 Mg Tablet Unknown Dose PO DAILY Warfarin Sodium 2 Mg Tablet Unknown Dose PO DAILY Lipitor (Atorvastatin Calcium) 10 Mg Tablet Unknown Dose PO HS Valium (Diazepam) 5 Mg Tablet 5 Mg PO BID Vitals/I & O Vital Sign - Last 24 Hours 01/12/17 01/12/17 01/12/17 01/12/17 14:15 14:25 14:31 14:46 Temp 97.8 97.8 Pulse 95 102 100 92 Resp 20 18 18 16 B/P (MAP) 160/101 (120) Pulse Ox 99 97 99 99 O2 Delivery Room Air 01/12/17 01/12/17 01/12/17 01/12/17 15:03 15:16 15:31 17:21 Temp 97.5 97.5 Pulse 81 74 74 69 Resp 16 20 20 B/P (MAP) 139/92 (108) Pulse Ox 95 100 100 96 O2 Delivery Room Air 01/12/17 01/12/17 01/12/17 01/12/17 17:21 19:43 20:00 23:00 Temp 97.5 98.0 97.7 97.5 98.0 97.7 Pulse 69 76 69 Resp 20 18 18 B/P (MAP) 139/92 (108) 123/83 (96) 133/90 (104) Pulse Ox 96 99 98 O2 Delivery Room Air Room Air Room Air Room Air 01/13/17 01/13/17 01/13/17 01/13/17 03:00 07:00 09:21 09:22 Temp 98.2 97.4 98.2 97.4 Pulse 66 78 78 78 Resp 18 18 B/P (MAP) 125/87 (100) 119/90 (100) 119/90 119/90 Pulse Ox 99 98 O2 Delivery Room Air Room Air Images Brain MRI: Ventricles appear appropriate for patient age. Small old cortical infarction involves the left parietal lobe. There is no shift in midline structures; there is no evidence of intracranial mass or significant mass effect. There is no evidence of acute intracranial hemorrhage. No abnormal extra-axial fluid collections are identified. There is no restricted diffusion to suggest acute infarction. Major intracranial vascular flow voids appear intact. Left maxillary sinus disease is seen. Impression: 1. No acute intracranial process. 2. 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 Carotids: IMPRESSION: No evidence of hemodynamically significant stenosis at either carotid bifurcation. Stenosis 0-50%. HEMANT VARGAS MD Jan 13, 2017 11:13
[2017-01-13] MEDS ORDERED: ASPI325T8 PO (12:21)
--- NOTE | 2017-01-13 12:21 | CARD ---
APPROVED REPORT EXAM: Two-dimensional and M-mode echocardiogram with Doppler and color Doppler. Other Information Quality : Good INDICATION CVA/TIA 2D DIMENSIONS RVDd2.7 (2.9-3.5cm)Left Atrium(2D)3.2 (1.6-4.0cm) IVSd1.2 (0.7-1.1cm)Aortic Root(2D)2.6 (2.0-3.7cm) LVDd4.8 (3.9-5.9cm)LVOT Diameter2.1 (1.8-2.4cm) PWd1.1 (0.7-1.1cm)LVDs2.7 (2.5-4.0cm) FS (%) 30.0 %SV78.7 ml LVEF(%)60.0 (>50%) Aortic Valve AoV Peak Rodrick.171.1cm/sAoV VTI31.5cm AO Peak GR.11.7mmHgLVOT Peak Rodrick.97.5cm/s LVOT VTI 20.20cmAO Mean GR.7mmHg ABRAM (VMAX)1.04tg6UKO (VTI)2.13cm2 Mitral Valve MV E Kqsaxrup16.5cm/sMV DECEL QSAQ939dt MV A Wgqmlhgz95.2cm/sMV UXO04kk E/A Ratio1.4MVA (PHT)3.16cm2 TDI E/Lateral E'10.4E/Medial E'14.3 Tricuspid Valve TR P. Wesebgbz692eb/sRAP QUPZQKJQ1orKh TR Peak Gr.73zkRaCYBB15vzBn Pulmonary Vein S1 Hnlhujks31.0cm/sD2 Onyzgngb57.8cm/s LEFT VENTRICLE The left ventricle is normal size. There is mild concentric left ventricular hypertrophy. The left ve ntricular systolic function is normal. The Ejection Fraction is 55-60%. There is normal LV segmental wall motion. The left ventricular diastolic function and filling is normal for age. RIGHT VENTRICLE The right ventricle is normal size. The right ventricular systolic function is normal. ATRIA The left atrium size is normal. The right atrium size is normal. The interatrial septum is intact wit h no evidence for an atrial septal defect or patent foramen ovale as noted on 2-D or Doppler imaging. AORTIC VALVE The aortic valve is normal in structure and function. Doppler and Color Flow revealed trace aortic re gurgitation. There is no significant aortic valvular stenosis. MITRAL VALVE The mitral valve is normal in structure and function. There is no evidence of mitral valve prolapse. There is no mitral valve stenosis. Doppler and Color-flow revealed trace mitral regurgitation. TRICUSPID VALVE The tricuspid valve is normal in structure and function. Doppler and Color Flow revealed trace tricus pid regurgitation. There is mild pulmonary hypertension. The PA pressure was estimated at 33 mmHg. Th ere is no tricuspid valve stenosis. PULMONIC VALVE The pulmonary valve is normal in structure and function. Doppler and Color Flow revealed mild pulmoni c valvular regurgitation. There is no pulmonic valvular stenosis. GREAT VESSELS The aortic root is normal in size. The ascending aorta is normal in size. The IVC is normal in size a nd collapses >50% with inspiration. PERICARDIAL EFFUSION There is no evidence of significant pericardial effusion. Critical Notification Critical Value: No <Conclusion> The left ventricular systolic function is normal. The Ejection Fraction is 55-60%. There is normal LV segmental wall motion. Trace aortic regurgitation. Trace mitral regurgitation. Trace tricuspid regurgitation. The PA pressure was estimated at 33 mmHg. There is no evidence of significant pericardial effusion.
--- NOTE | 2017-01-13 12:38 | PDOC3 ---
Discharge Summary Visit Information Date of Admission: Jan 12, 2017 Date of Discharge: Jan 13, 2017 Admitting Diagnosis: TIA Final Diagnosis TIA prior hx CVA, x4 ongoing tobaccoism anxiety d/o and OCD htn obesity, BMI 32 hypokalemia Brief Hospital Course Allergies Allergies Coded Allergies Type Severity Reaction Last Updated Verified No Known Drug Allergies 01/12/17 No Vital Signs Vital Signs Date Time Temp Pulse Resp B/P (MAP) Pulse Ox O2 Delivery O2 Flow Rate FiO2 01/13/17 11:00 97.4 74 18 113/80 (91) 100 Room Air 97.4 Lab Results Laboratory Tests Test 01/12/17 14:12 01/12/17 14:16 01/13/17 04:10 White Blood Count 7.2 x10^3/uL (4.0-11.0) 6.4 x10^3/uL (4.0-11.0) Red Blood Count 5.04 x10^6/uL (3.50-5.40) 4.58 x10^6/uL (3.50-5.40) Hemoglobin 14.5 g/dL (12.0-15.5) 13.1 g/dL (12.0-15.5) Hematocrit 43.3 % (36.0-47.0) 39.5 % (36.0-47.0) Mean Corpuscular Volume 86 fL (79-100) 86 fL (79-100) Mean Corpuscular Hemoglobin 29 pg (25-35) 29 pg (25-35) Mean Corpuscular Hemoglobin Concent 34 g/dL (31-37) 33 g/dL (31-37) Red Cell Distribution Width 14.7 % (11.5-14.5) 15.0 % (11.5-14.5) Platelet Count 349 x10^3/uL (140-400) 297 x10^3/uL (140-400) Prothrombin Time 13.6 SEC (11.7-14.0) 13.2 Sec (10.0-14.0) Prothromb Time International Ratio 1.1 (0.8-1.1) Activated Partial Thromboplast Time 30 SEC (24-38) Sodium Level 142 mmol/L (136-145) 144 mmol/L (136-145) Potassium Level 3.3 mmol/L (3.5-5.1) 3.6 mmol/L (3.5-5.1) Chloride Level 105 mmol/L (98-107) 108 mmol/L (98-107) Carbon Dioxide Level 30 mmol/L (21-32) 29 mmol/L (21-32) Anion Gap 7 (6-14) 7 (6-14) Blood Urea Nitrogen 15 mg/dL (7-20) 20 mg/dL (7-20) Creatinine 1.0 mg/dL (0.6-1.0) 0.8 mg/dL (0.6-1.0) Estimated GFR (Cockcroft-Gault) 58.2 91.1 Glucose Level 133 mg/dL (70-99) 98 mg/dL (70-99) Glucose (Fingerstick) 132 mg/dL (70-99) Calcium Level 9.2 mg/dL (8.5-10.1) 8.8 mg/dL (8.5-10.1) Magnesium Level 1.8 mg/dL (1.8-2.4) Total Bilirubin 0.4 mg/dL (0.2-1.0) Direct Bilirubin 0.1 mg/dL (0.0-0.2) Aspartate Amino Transf (AST/SGOT) 23 U/L (15-37) Alanine Aminotransferase (ALT/SGPT) 33 U/L (14-59) Alkaline Phosphatase 128 U/L (46-116) Creatine Kinase 154 U/L (26-192) Creatine Kinase MB (Mass) 0.7 ng/mL (0.0-3.6) Creatine Kinase MB Relative Index 0.5 % (0-4) Troponin I Quantitative < 0.017 ng/mL (0.000-0.055) NP-[id number]-[id number]-Type Natriuretic Peptide 33 pg/mL (0-124) Total Protein 8.5 g/dL (6.4-8.2) Albumin 3.9 g/dL (3.4-5.0) Bedside INR (LAB) 1.1 (0.9-1.1) Neutrophils (%) (Auto) 46 % (31-73) Lymphocytes (%) (Auto) 41 % (24-48) Monocytes (%) (Auto) 9 % (0-9) Eosinophils (%) (Auto) 3 % (0-3) Basophils (%) (Auto) 1 % (0-3) Neutrophils # (Auto) 2.9 x10^3uL (1.8-7.7) Lymphocytes # (Auto) 2.6 x10^3/uL (1.0-4.8) Monocytes # (Auto) 0.6 x10^3/uL (0.0-1.1) Eosinophils # (Auto) 0.2 x10^3/uL (0.0-0.7) Basophils # (Auto) 0.0 x10^3/uL (0.0-0.2) Triglycerides Level 214 mg/dL (0-150) Cholesterol Level 133 mg/dL (0-200) LDL Cholesterol, Calculated 56 mg/dL (0-100) VLDL Cholesterol, Calculated 43 mg/dL (0-40) Non-HDL Cholesterol Calculated 99 mg/dL (0-129) HDL Cholesterol 34 mg/dL (40-60) Cholesterol/HDL Ratio 3.9 Laboratory Tests Test 01/12/17 14:12 01/12/17 14:16 01/13/17 04:10 White Blood Count 7.2 x10^3/uL (4.0-11.0) 6.4 x10^3/uL (4.0-11.0) Red Blood Count 5.04 x10^6/uL (3.50-5.40) 4.58 x10^6/uL (3.50-5.40) Hemoglobin 14.5 g/dL (12.0-15.5) 13.1 g/dL (12.0-15.5) Hematocrit 43.3 % (36.0-47.0) 39.5 % (36.0-47.0) Mean Corpuscular Volume 86 fL (79-100) 86 fL (79-100) Mean Corpuscular Hemoglobin 29 pg (25-35) 29 pg (25-35) Mean Corpuscular Hemoglobin Concent 34 g/dL (31-37) 33 g/dL (31-37) Red Cell Distribution Width 14.7 % (11.5-14.5) 15.0 % (11.5-14.5) Platelet Count 349 x10^3/uL (140-400) 297 x10^3/uL (140-400) Prothrombin Time 13.6 SEC (11.7-14.0) 13.2 Sec (10.0-14.0) Prothromb Time International Ratio 1.1 (0.8-1.1) Activated Partial Thromboplast Time 30 SEC (24-38) Sodium Level 142 mmol/L (136-145) 144 mmol/L (136-145) Potassium Level 3.3 mmol/L (3.5-5.1) 3.6 mmol/L (3.5-5.1) Chloride Level 105 mmol/L (98-107) 108 mmol/L (98-107) Carbon Dioxide Level 30 mmol/L (21-32) 29 mmol/L (21-32) Anion Gap 7 (6-14) 7 (6-14) Blood Urea Nitrogen 15 mg/dL (7-20) 20 mg/dL (7-20) Creatinine 1.0 mg/dL (0.6-1.0) 0.8 mg/dL (0.6-1.0) Estimated GFR (Cockcroft-Gault) 58.2 91.1 Glucose Level 133 mg/dL (70-99) 98 mg/dL (70-99) Glucose (Fingerstick) 132 mg/dL (70-99) Calcium Level 9.2 mg/dL (8.5-10.1) 8.8 mg/dL (8.5-10.1) Magnesium Level 1.8 mg/dL (1.8-2.4) Total Bilirubin 0.4 mg/dL (0.2-1.0) Direct Bilirubin 0.1 mg/dL (0.0-0.2) Aspartate Amino Transf (AST/SGOT) 23 U/L (15-37) Alanine Aminotransferase (ALT/SGPT) 33 U/L (14-59) Alkaline Phosphatase 128 U/L (46-116) Creatine Kinase 154 U/L (26-192) Creatine Kinase MB (Mass) 0.7 ng/mL (0.0-3.6) Creatine Kinase MB Relative Index 0.5 % (0-4) Troponin I Quantitative < 0.017 ng/mL (0.000-0.055) CD-Rih-Q-Type Natriuretic Peptide 33 pg/mL (0-124) Total Protein 8.5 g/dL (6.4-8.2) Albumin 3.9 g/dL (3.4-5.0) Bedside INR (LAB) 1.1 (0.9-1.1) Neutrophils (%) (Auto) 46 % (31-73) Lymphocytes (%) (Auto) 41 % (24-48) Monocytes (%) (Auto) 9 % (0-9) Eosinophils (%) (Auto) 3 % (0-3) Basophils (%) (Auto) 1 % (0-3) Neutrophils # (Auto) 2.9 x10^3uL (1.8-7.7) Lymphocytes # (Auto) 2.6 x10^3/uL (1.0-4.8) Monocytes # (Auto) 0.6 x10^3/uL (0.0-1.1) Eosinophils # (Auto) 0.2 x10^3/uL (0.0-0.7) Basophils # (Auto) 0.0 x10^3/uL (0.0-0.2) Triglycerides Level 214 mg/dL (0-150) Cholesterol Level 133 mg/dL (0-200) LDL Cholesterol, Calculated 56 mg/dL (0-100) VLDL Cholesterol, Calculated 43 mg/dL (0-40) Non-HDL Cholesterol Calculated 99 mg/dL (0-129) HDL Cholesterol 34 mg/dL (40-60) Cholesterol/HDL Ratio 3.9 Brief Hospital Course Ms. Remy is a 51 old isaura for neuro sx, TIA, [place], Neuro eval, sx improved to baseline quickly only med change was asa 325 mg daily f/u with primary care in [place] Discharge Information Condition at Discharge: Improved Follow Up: Weeks Disposition/Orders: D/C to Home Scheduled Amlodipine Besylate (Amlodipine Besylate), Unknown Dose PO DAILY, (Reported) Aspirin (Aspirin), 325 MG PO DAILYWBKFT Atorvastatin Calcium (Lipitor), Unknown Dose PO HS, (Reported) Atorvastatin Calcium (Lipitor), 1 TAB PO DAILY, (Reported) Clonidine Hcl (Clonidine Hcl), Unknown Dose PO DAILY, (Reported) Diazepam (Valium), 5 MG PO BID, (Reported) Warfarin Sodium (Warfarin Sodium), Unknown Dose PO DAILY, (Reported) Patient Instructions Patient Instructions face to face eval, she felt more imprvoed > 30 min ALBINO LACKEY MD Jan 13, 2017 12:38
== END 2017-01-13 13:00 | disposition home or self-care (01) | DRG 69 ==
LOC: ER 14:04 → 6 SOUTH 14:57
PROVIDERS: ADMIT Internal Medicine; ATTEND Internal Medicine
DX: G45.9 Transient cerebral ischemic attack, unspecified (principal); E66.9 Obesity, unspecified; E78.00 Pure hypercholesterolemia, unspecified; E78.5 Hyperlipidemia, unspecified; I10 Essential (primary) hypertension; E87.6 Hypokalemia; F17.210 Nicotine dependence, cigarettes, uncomplicated; F42.9 Obsessive-compulsive disorder, unspecified; R47.1 Dysarthria and anarthria; F41.9 Anxiety disorder, unspecified; Z68.32 Body mass index [BMI] 32.0-32.9, adult; Z98.51 Tubal ligation status; Z86.73 Personal history of transient ischemic attack (TIA), and cerebral infarction without residual deficits; Z82.3 Family history of stroke; Z90.710 Acquired absence of both cervix and uterus; Z79.82 Long term (current) use of aspirin
CPT/HCPCS: 36415; 70450; 70551; 71010; 80048; 80061; 80076; 82553; 82962; 83735; 83880; 84484; 85025; 85027; 85610; 85730; 93005; 93306; 93880; 96360; J1650; J7030; 92610; 99285-25